=== PATIENT | female | born 1940 | race Caucasian/White ===

== ENCOUNTER → 2024-04-21 | Emergency (ER) | payer MEDICARE ==
[~2024-04-21] VITALS: Ht 142.2 cm; Wt 59.0 kg
--- NOTE | 2024-04-21 14:54 | ERN ---
ED Note History of Present Illness Stated Complaint: CHEST AND PAIN BACK Chief Complaint: Abdominal Pain Time Seen by MD: 14:40 Dictation: PATIENT IS AN 83-YEAR-OLD FEMALE STATES SHE STARTED HAVING SUBSTERNAL PAIN THAT RADIATES TO HER UPPER THORACIC BACK APPROXIMATELY AN HOUR AGO THAT LASTED ABOUT 30 MINUTES. SHE STATES THE PAIN NOW IS COMPLETELY RESOLVED SHE NEVER HAD ANY SOB NO NAUSEA VOMITING DENIES ANY HISTORY OF CARDIAC DISEASE NO ABDOMINAL PAIN. NO FEVER NO CHILLS Allergies: Coded Allergies: No Known Allergies (Unverified Allergy, Unknown, 04/21/24) Past Medical History History: Not Applicable RN Note Reviewed/Agreed w/PFSH: Yes Review of System Dictation CONSTITUTIONAL: NEGATIVE EXCEPT FOR HPI HEAD/FACE: NEGATIVE EXCEPT FOR HPI EENT: NEGATIVE EXCEPT FOR HPI RESPIRATORY: NEGATIVE EXCEPT FOR HPI EPIGASTRIC PAIN THAT RADIATES TO THORACIC BACK RESOLVED GASTROINTESTINAL/ABDOMINAL: NEGATIVE EXCEPT FOR HPI GENITOURINARY: NEGATIVE EXCEPT FOR HPI MUSCULOSKELETAL: NEGATIVE EXCEPT FOR HPI INTEGUMENTARY: NEGATIVE EXCEPT FOR HPI NEUROLOGICAL/PSYCH: NEGATIVE EXCEPT FOR HPI HEMATOLOGIC/LYMPHATIC: NEGATIVE EXCEPT FOR HPI ALL SYSTEMS NEGATIVE, EXCEPT NOTED ABOVE. 13 POINT REVIEW OF SYSTEMS ASSESSED AND ALL NEGATIVE EXCEPT FOR ABOVE. Initial Vital Sign VS Vital Signs Date Time Temp Pulse Resp B/P (MAP) Pulse Ox O2 Delivery O2 Flow Rate FiO2 04/21/24 14:51 97.9 62 16 203/97 98 Room Air 0 04/21/24 16:09 21 Physical Exam Dictation VITAL SIGNS REVIEWED THE PAIN ON APPROACH GENERAL APPEARANCE: ALERT, ORIENTED X 3, NO ACUTE DISTRESS, WELL DEVELOPED, NOURISHED. HEAD AND FACE: NON-TRAUMATIC. EYES: PERRL, PINK CONJUNCTIVAS, EYELID NO TRAUMA, ANTERIOR CHAMBER WITH ARCUS SENILIS. EARS: PINNAS INTACT AND NO SIGNS OF TRAUMA OR ERYTHEMA EAR CANALS CLEAR AND NO DISCHARGE TM NO ERYTHEMA NOSE: NO DISCHARGE, NO BLEEDING. OROPHARYNX: MOUTH NORMAL, TONGUE PINK, PHARYNX CLEAR,NO ERYTHEMA, TONSILS NO EXUDATES, NO ABSCESSES NOTED, MUCOUS MEMBRANE MOIST NECK: SUPPLE, NON-TENDER, NO THYROMEGALY, NO MASSES, NO JVD, NO BRUITS BREAST:DEFERRED CHEST:NO TENDERNESS, NO CREPITUS, NO PARADOXICAL MOVEMENT, NO RETRACTIONS LUNGS:CLEAR, WELL-VENTILATED, SYMMETRIC, NO RALES, NO WHEEZING, NO RHONCHI, NO STRIDOR, GOOD BREATH SOUNDS BILATERALLY HEART: REGULAR RATE, REGULAR RHYTHM, NO MURMUR, NO GALLOPS VASCULAR: NO PERIPHERAL EDEMA, ABDOMEN: SOFT, POSITIVE BOWEL SOUNDS, NONDISTENDED, NO GUARDING, NONTENDER, NO REBOUND, NO MASSES NO HEPATOMEGALY, NO SPLENOMEGALY, NO OJEDA'S SIGN, NO HERNIAS. RECTAL: DEFERRED GENITAL: DEFERRED NEUROLOGICAL: NORMAL SPEECH, MOTOR FUNCTION INTACT, SENSORY FUNCTION INTACT MUSCULOSKELETAL: NECK NONTENDER, FULL RANGE OF MOTION, BACK NONTENDER, FULL RANGE OF MOTION, EXTREMITIES: NONTENDER, FULL RANGE OF MOTION SKIN: COLOR PINK, DRY, NO TURGOR, NO RASH, NO LACERATIONS, NO ABRASIONS, NO CONTUSIONS. LYMPHATIC: DEFERRED Results (Laboratory/Radiology) Laboratory/Radiology Laboratory Tests Test 04/21/24 15:08 White Blood Count 4.6 K/uL (4.8-10.8) L Red Blood Count 4.58 MIL/uL (4.00-5.50) Hemoglobin 14.1 g/dL (12.0-16.0) Hematocrit 41.5 % (36-48) Mean Corpuscular Volume 90.6 fL (79-99) Mean Corpuscular Hemoglobin 30.8 pg (27.0-33.0) Mean Corpuscular Hemoglobin Concent 34.0 g/dL (32.0-36.0) Red Cell Distribution Width 14.7 % (11.0-15.5) Platelet Count 163 K/uL (130-400) Mean Platelet Volume 10.5 fL (7.5-10.5) Immature Granulocyte % (Auto) 0.0 % (0-1) Neutrophils (%) (Auto) 48.6 % (40.0-77.0) Lymphocytes (%) (Auto) 39.0 % (21.0-51.0) Monocytes (%) (Auto) 7.8 % (3.0-13.0) Eosinophils (%) (Auto) 3.9 % (0.0-8.0) Basophils (%) (Auto) 0.7 % (0.0-5.0) Neutrophils # (Auto) 2.2 K/uL (1.8-7.7) Lymphocytes # (Auto) 1.8 K/uL (1.0-4.8) Monocytes # (Auto) 0.4 K/uL (0.1-1.0) Eosinophils # (Auto) 0.18 K/uL (0.00-0.70) Basophils # (Auto) 0.03 K/uL (0.00-0.20) Absolute Immature Granulocyte (auto 0.00 K/uL (0-1) Nucleated Red Blood Cells 0.0 % (0.0-0.19) Sodium Level 135 mmol/L (136-145) L Potassium Level 4.3 mmol/L (3.5-5.1) Chloride Level 99 mmol/L (101-111) L Carbon Dioxide Level 31 mmol/L (21-32) Blood Urea Nitrogen 12 mg/dL (7-18) Creatinine 1.0 mg/dL (0.5-1.0) Glomerular Filtration Rate Calc 57 mL/min (>90) Random Glucose 92 mg/dL (70-105) Total Calcium 9.3 mg/dL (8.5-10.1) Magnesium Level 1.80 mg/dL (1.80-2.40) Troponin I High Sensitivity 6 ng/L (4-50) Labs Reviewed?: Yes EKG Comment: EKG SINUS RHYTHM/HEART RATE 74/PROLONGED AR/AXIS NORMAL ED Course ED Course Orders Procedure Category Date Status Time Cbc With Differential LAB 04/21/24 Complete 14:52 Chest 1vw RAD 04/21/24 Resulted 14:52 12 Lead Ekg Tracing- EKG 04/21/24 Logged Technical 14:52 Magnesium LAB 04/21/24 Complete 14:52 Troponin I High LAB 04/21/24 Complete Sensitivity 14:52 Aspirin 325mg Tab PHA 04/21/24 Complete (Aspirin 325mg Tab) 15:00 Basic Metabolic Panel LAB 04/21/24 Complete 14:52 Current Medications Medications (Trade) Dose Ordered Sig/Kev Route PRN Reason Start Time Stop Time Status Last Admin Dose Admin Aspirin (Aspirin 325mg Tab) 325 mg ONCE ONCE PO 04/21/24 15:00 04/21/24 15:01 DC 04/21/24 16:08 Vital Signs Date Time Temp Pulse Resp B/P (MAP) Pulse Ox O2 Delivery O2 Flow Rate FiO2 04/21/24 16:09 98.4 69 16 221/109 96 Room Air* 0 21 04/21/24 14:51 97.9 62 16 203/97 98 Room Air 0 HEART Score Response (Comments) Value EKG: Repolarization changes 1 Age: > 65yrs (+2) 2 Risk Factors: 1-2 risk factors (+1) 1 Initial Troponin: Normal limit (0) 0 Total 4 Medical Decision Making MDM MEDICAL DISCHARGE MAKING BASED ON CARDIAC WORKUP. 1919/PATIENT WAS CALLED FROM WAITING ROOM TO GIVE HER THE RESULTS OF THE WORKUP X2 NO ANSWER DX & DISP Disposition: AMA Departure Impression: Primary Impression: Hyponatremia Condition: Stable Referrals: SELF,REFERRAL (PCP) Time of Disposition: 19:18 I have reviewed the case, and I agree with, Diagnosis and Plan CHARU SHEEHAN NP Apr 21, 2024 14:54
[2024-04-21 15:31] LABS: BASOPHILS # (AUTO) 0.03 K/uL (0.00-0.20); BASOPHILS % (AUTO) 0.7 % (0.0-5.0); EOSINOPHILS # (AUTO) 0.18 K/uL (0.00-0.70); EOSINOPHILS % (AUTO) 3.9 % (0.0-8.0); HEMATOCRIT 41.5 % (36-48); LYMPHOCYTES # (AUTO) 1.8 K/uL (1.0-4.8); MEAN CORPUSCULAR HEMOGLOBIN 30.8 pg (27.0-33.0); MEAN CORPUSCULAR VOLUME 90.6 fL (79-99); MONOCYTES # (AUTO) 0.4 K/uL (0.1-1.0); MONOCYTES % (AUTO) 7.8 % (3.0-13.0); NEUTROPHILS # (AUTO) 2.2 K/uL (1.8-7.7); NEUTROPHILS % (AUTO) 48.6 % (40.0-77.0); PLATELET COUNT (AUTO) 163 K/uL (130-400); RED BLOOD CELL COUNT(AUTO) 4.58 MIL/uL (4.00-5.50); RED CELL DISTRIBUTION WIDTH 14.7 % (11.0-15.5); WHITE BLOOD COUNT (AUTO) 4.6 K/uL (4.8-10.8)
[2024-04-21 15:38] LABS: MAGNESIUM 1.8 mg/dL (1.80-2.40); POTASSIUM 4.3 mmol/L (3.5-5.1)
--- NOTE | 2024-04-21 15:54 | HMCIMG ---
Exam Type: CHEST 1VW Clinical Information: CHEST PAIN Comparison: None Findings: Ill-defined infiltrates of the right lower lobe are seen consistent with pneumonia. The heart is large in size. The bony and soft tissue structures show no worrisome pathology. IMPRESSION: Findings consistent with pneumonia. Follow-up is advised.
[2024-04-21] MEDS: ASPIRIN 325MG TAB PO ONE (16:08)
[2024-04-21 16:09] VITALS: BP 221/109; PULSE 69; RESP 16; TEMP 98.5; O2SAT 96
--- NOTE | 2024-04-21 19:15 | NUR ---
CALLED FOR PT IN LOBBY TO MOVE TO FT. NO RESPONSE. PT NOT FOUND IN LOBBY
--- NOTE | 2024-04-22 07:44 | EKG ---
[facility] Test Date: 2024-04-21 Test Time: 14:58:35 Pat Name: BRENNAN SPANN Department: ED Room: Gender: F Nail Tech: 0802 : [id number] Requested By: CHARU SHEEHAN Order Number: [id number] Reading MD: Jun Harrell Measurements Intervals [place] Rate: 56 P: 49 CT: 214 QRS: 51 QRSD: 87 T: 51 QT: 439 QTc: 425 Interpretive Statements Sinus rhythm Borderline prolonged CT interval No previous ECG available for comparison Electronically Signed On 04-24-2024 17:31:49 ENERGY ADVISOR by Jun Harrell Please click the below link to view image of tracing.
== END ==
LOC: EDH 14:37
DX: E87.1 Hypo-osmolality and hyponatremia (principal)
CPT/HCPCS: 36415; 71045; 80048; 83735; 84484; 85025; 93005; 99284; 99285